=== PATIENT | female | born 1980 | race Caucasian/White ===

== ENCOUNTER 2018-12-04 09:18 | Emergency (ER) | payer MEDICAID ==
[~2018-12-04] VITALS: Ht 165.1 cm; Wt 54.9 kg
[2018-12-04 09:31] VITALS: Ht 165.1 cm; Wt 54.9 kg
[2018-12-04] MEDS ORDERED: CEPH-443 PO (12:52)
[2018-12-04] MEDS ORDERED: ACET500C5 PO (12:52)
--- NOTE | 2018-12-04 12:58 | ERD ---
ER Documentation Chief Complaint Chief Complaint Complains of vag bleed and 8 weeks HPI 38-year-old female patient with no significant past medical history is a A1 presents the ED who is currently having slight hematuria noted when she was urinating yesterday. Patient reports that she has some lower abdominal pain that she describes as cramping. Rates it a 5 out of 10. States that she does have also some dysuria. Denies any chest pain, shortness of breath, nausea, vomiting, diarrhea, neck stiffness. ROS All systems reviewed and are negative except as per history of present illness. Medications Home Meds Active Scripts Acetaminophen* (Tylophen*) 500 Mg Capsule, 1 CAP PO Q6H PRN for PAIN AND OR ELEVATED TEMP, #20 CAP Prov:GOMEZ LENTZ PA-C 12/04/18 Cephalexin* (Keflex*) 500 Mg Capsule, 500 MG PO QID for 7 Days, CAP Prov:GOMEZ LENTZ PA-C 12/04/18 Allergies Allergies: Coded Allergies: tramadol (Verified Allergy, Intermediate, 12/04/18) PMhx/Soc History of Surgery: Yes (appendectomy) Hx Neurological Disorder: No Hx Respiratory Disorders: No Hx Cardiac Disorders: No Hx Psychiatric Problems: No Hx Miscellaneous Medical Probl: No Hx Alcohol Use: No Hx Substance Use: No Hx Tobacco Use: No FmHx Family History: No diabetes, No coronary disease Physical Exam Vitals Vital Signs Date Temp Pulse Resp B/P (MAP) Pulse Ox O2 O2 Flow FiO2 Time Delivery Rate 12/04/18 97.1 72 20 115/64 100 09:31 (81) Physical Exam Const: [id number], well-nourished. In no acute distress. Head: Atraumatic, normocephalic Eyes: Normal Conjunctiva without injection. No purulent discharge. ENT: Normal external ear, nose. Moist oropharynx without tonsillar exudates. Non-erythematous pharynx. Uvula midline. No drooling. No trismus. Neck: No cervical midline tenderness. Full range of motion. No meningismus. No cervical lymphadenopathy. No JVD. Resp: Clear to auscultation bilaterally. No wheezing, rhonchi, rales, or crackles. No accessory muscle use. No retractions. Cardio: Regular rate and rhythm. No murmurs, rubs or gallops. Abd: Soft, lower abdominal tenderness, non distended. Normal bowel sounds. No palpable masses. No rebound tenderness. No guarding. Negative McBurney's point. Negative psoas sign. Negative obturator sign. Skin: No petechiae or rashes Back: No midline tenderness. No CVA tenderness. Ext: No cyanosis, or edema. Neur: Awake and alert. Normal gait. Normal coordination. Psych: Normal Mood and Affect Result Diagram: 12/04/18 1117 Results 24 hrs Laboratory Tests Test 12/04/18 11:16 12/04/18 11:17 Urine Color STRAW Urine Clarity SLIGHTLY CLOUDY Urine pH 6.0 Urine Specific [place] 1.004 Urine Ketones 1+ mg/dL Urine Nitrite NEGATIVE mg/dL Urine Bilirubin NEGATIVE mg/dL Urine Urobilinogen NEGATIVE mg/dL Urine Leukocyte Esterase 1+ Roseline/ul Urine Microscopic RBC 6 /HPF Urine Microscopic WBC 43 /HPF Urine Squamous Epithelial Cells MODERATE /HPF Urine Bacteria MODERATE /HPF Urine Hemoglobin 3+ mg/dL Urine Glucose NEGATIVE mg/dL Urine Total Protein NEGATIVE mg/dl White Blood Count 10.9 10^3/ul Red Blood Count 4.32 10^6/ul Hemoglobin 12.2 g/dl Hematocrit 37.2 % Mean Corpuscular Volume 86.1 fl Mean Corpuscular Hemoglobin 28.2 pg Mean Corpuscular Hemoglobin Concent 32.8 g/dl Red Cell Distribution Width 12.8 % Platelet Count 298 10^3/UL Mean Platelet Volume 9.1 fl Immature Granulocytes % 0.500 % Neutrophils % 78.0 % Lymphocytes % 13.5 % Monocytes % 6.7 % Eosinophils % 1.0 % Basophils % 0.3 % Nucleated Red Blood Cells % 0.0 /100WBC Immature Granulocytes # 0.050 10^3/ul Neutrophils # 8.5 10^3/ul Lymphocytes # 1.5 10^3/ul Monocytes # 0.7 10^3/ul Eosinophils # 0.1 10^3/ul Basophils # 0.0 10^3/ul Nucleated Red Blood Cells # 0.0 10^3/ul Beta HCG, Quantitative 932901.0 mIU/ml Procedures/MDM 38-year-old female patient with no significant past medical history presents to ED complaining of vaginal bleeding during her . Patient is afebrile and nontoxic-appearing. An ultrasound, beta-hCG, CBC, type and RH, UA was ordered to evaluate patient. CBC: No evidence of severe infection or anemia Urine: No elevation in nitrites, 1+ leukocyte esterase, 3+ hematuria. Rh: O positive. No indication for Rhogam at this time. beta Hc IMPRESSION: 1. Single live intrauterine of approximate 9 weeks 0 days gestation. 2. Positive cardiac activity. 3. Yolk sac not visualized. 4. Small subchorionic hemorrhage. 5. Ovaries not visualized. There are no complex adnexal masses. 6. No free fluid She will be treated for urinary tract infection. Patient has a single IUP of 9 weeks as well as having positive cardiac activity. Patient has appointment with her ADVANCED PRACTICE PROVIDER on December 07, 2018 and I instructed patient to discuss with her ADVANCED PRACTICE PROVIDER about the yolk sac not being visualized. Patient currently does not have any lower abdominal pain. Patient's bleeding symptoms have stabilized while in the department. Low suspicion for symptomatic anemia, ectopic , sepsis, PID, appendicitis, ovarian torsion, tubo-ovarian abscess, surgical abdomen, or other emergent conditions. Patient was educated that there is a risk for threatened . Patient to follow up with ADVANCED PRACTICE PROVIDER in 2 days for further evaluation and treatment. Patient is to return sooner to the ED for any worsening symptoms such as worsening abdominal pain, fever, vomiting. Patient's questions were answered. Patient understood and agreed with discharge plan. Disclaimer: Inadvertent spelling and grammatical errors are likely due to EHR/dictation software use and do not reflect on the overall quality of patient care. Also, please note that the electronic time recorded on this note does not necessarily reflect the actual time of the patient encounter. Departure Diagnosis: Primary Impression: Vaginal bleeding in patient at less than 20 weeks ges... Condition: Stable Patient Instructions: Urinary Tract Infections in Women, Bleeding During Early Referrals: COMMUNITY CLINICS YOU HAVE RECEIVED A MEDICAL SCREENING EXAM AND THE RESULTS INDICATE THAT YOU DO NOT HAVE A CONDITION THAT REQUIRES URGENT TREATMENT IN THE EMERGENCY DEPARTMENT. FURTHER EVALUATION AND TREATMENT OF YOUR CONDITION CAN WAIT UNTIL YOU ARE SEEN IN YOUR DOCTORS OFFICE WITHIN THE NEXT 1-2 DAYS. IT IS YOUR RESPONSIBILITY TO MAKE AN APPOINTMENT FOR FOLOW-UP CARE. IF YOU HAVE A PRIMARY DOCTOR --you should call your primary doctor and schedule an appointment IF YOU DO NOT HAVE A PRIMARY DOCTOR YOU CAN CALL OUR PHYSICIAN REFERRAL HOTLINE AT IF YOU CAN NOT AFFORD TO SEE A PHYSICIAN YOU CAN CHOSE FROM THE FOLLOWING [facility] CLINICS [facility] [address] [facility] [address] [facility] [address] [facility] [address] [facility] [address] [facility]. [facility] [address] [facility]. [facility] YOU HAVE RECEIVED A MEDICAL SCREENING EXAM AND THE RESULTS INDICATE THAT YOU DO NOT HAVE A CONDITION THAT REQUIRES URGENT TREATMENT IN THE EMERGENCY DEPARTMENT. FURTHER EVALUATION AND TREATMENT OF YOUR CONDITION CAN WAIT UNTIL YOU ARE SEEN IN YOUR DOCTORS OFFICE WITHIN THE NEXT 1-2 DAYS. IT IS YOUR RESPONSIBILITY TO MAKE AN APPOINTMENT FOR [facility]. IF YOU HAVE A PRIMARY DOCTOR --you should call your primary doctor and schedule and appointment IF YOU DO NOT HAVE A PRIMARY DOCTOR YOU CAN CALL OUR PHYSICIAN REFERRAL HOTLINE AT . IF YOU CAN NOT AFFORD TO SEE A PHYSICIAN YOU CAN CHOSE FROM THE FOLLOWING [facility] INSTITUTIONS: [facility] [address] [place] [address] [facility] [address] [place] [address] [facility] [address] [place] [address] [facility] URGENT CARE/SPECIALTIES ADVANCED PRACTICE PROVID[place] [address] [facility] [address] [place], [place] [phone] OFFICE FAX DR.ABUSLEME YAMILET [address] [place] [address] DR. MARIAFORMERLY [facility] [address] [place], [place] [phone] [address] ESCOBAR [facility] [address] [facility] [id number] CLEMONS, MATTHEWRO [address] [facility] [place] [id number] [facility] [address] [place] [address] [address] [facility] [id number] - DR GALLAGHER, SLOANE [address], [facility] [address] [address] MATHIS, KATHARINE [address] [facility]. [address], [facility] [address] [address] BRYSON, [facility] [address] [place], [place] [phone] [facility] Hours: 8:00 am - 5:00 pm Additional Instructions: Call your primary care doctor TOMORROW for an appointment during the next 2-3 days.See the doctor sooner or return here if your condition worsens before your appointment time. GOMEZ LENTZ PA-C Dec 04, 2018 12:58
[2018-12-04 13:04] VITALS: BP 115/64; PULSE 78; RESP 18
== END 2018-12-04 13:03 | disposition home or self-care (01) ==
LOC: FTE 09:18
DX: O20.9 Hemorrhage in early pregnancy, unspecified (principal); Z3A.09 9 weeks gestation of pregnancy
CPT/HCPCS: 36415; 76801; 81001; 84702; 85025; 86900; 86901; Z7502